=== PATIENT | female | born 1990 | race Caucasian/White ===

== ENCOUNTER 2021-10-02 02:30 | Emergency (ER) | payer MEDICAID ==
[~2021-10-02] VITALS: Ht 162.6 cm; Wt 70.3 kg
[2021-10-02 02:36] VITALS: BP 131/70
--- NOTE | 2021-10-02 02:48 | NUR ---
PT TAKEN TO BED 04. AMBULATORY W STEADY GAIT.
--- NOTE | 2021-10-02 02:55 | NUR ---
COVERING PRIMARY RN FOR LUNCH RELIEF. SEE COMPLETE ASSESSMENT
[2021-10-02 03:45] LABS: APPEARANCE,URINE SL CLOUDY (CLEAR); BILIRUBIN,URINE NEGATIVE (NEGATIVE); BLOOD, URINE NEGATIVE (NEGATIVE); COLOR,URINE YELLOW (YELLOW); LEUKOCYTE ESTERASE ,URINE NEGATIVE (NEGATIVE); NITRITE, URINE NEGATIVE (NEGATIVE); UGLUCOSE NEGATIVE (NEGATIVE)
--- NOTE | 2021-10-02 03:53 | NUR ---
Female Type Caster accompanied female patient for Pelvic Exam. Wet mount sample collected by GREGORIO, sample handed to [facility].
[2021-10-02] MEDS ORDERED: cefTRIAXone 500 MG in LIDOCAINE MPF 1% 1 ML IM ONE (04:00)
[2021-10-02] MEDS ORDERED: LIDOCAINE MPF 1% 5 ML ONE (04:09)
[2021-10-02] MEDS ORDERED: cefTRIAXone 500 MG VIAL ONE (04:09)
[2021-10-02] MEDS ORDERED: METR-520 PO (05:01)
[2021-10-02] MEDS ORDERED: DOXY-487 PO (05:01)
[2021-10-02 05:08] VITALS: BP 132/72
--- NOTE | 2021-10-02 05:11 | NUR ---
PATIENT DC HOME STABLE AND FEELING WELL VITAL SIGNS IN NORMAL LIMITS NOT COMPLAINING OF PAIN VITALS SIGNS IN NORMAL LIMITS ALL DC INSTRUCTION GAVED AND EXPLAINED ALSO GAVE OLGA .D EDUCATION WE RECOMENNDED TO FOLLOW UP WITH PCP //Avelina TILLMAN
== END 2021-10-02 05:11 | disposition home or self-care (01) ==
LOC: MED 02:30
DX: N76.0 Acute vaginitis (principal); B96.89 Other specified bacterial agents as the cause of diseases classified elsewhere; Z20.2 Contact with and (suspected) exposure to infections with a predominantly sexual mode of transmission; Z79.2 Long term (current) use of antibiotics
CPT/HCPCS: 36415; 81003; 81025; 86592; 87210; 87491; 96372; 99283; J0696; J2001